=== PATIENT | female | born 1990 | race Two or more races ===

== ENCOUNTER → 2017-11-08 | Outpatient (CLI) | payer BC | LOC: LAB 13:07 | PROVIDERS: Registered Nurse Community Health | DX: Z01.419 Encounter for gynecological examination (general) (routine) without abnormal findings (principal) | CPT/HCPCS: G0123 ==

== ENCOUNTER → 2021-04-23 | Outpatient (CLI) | payer BC ==
[~2021-04-23] MED LIST: IBUP800 PO; PRENATAL TABLE1 EAC2 PO
== END ==
LOC: LAB 16:53 → LAB SHORT 16:53
DX: O09.93 Supervision of high risk pregnancy, unspecified, third trimester (principal); Z3A.00 Weeks of gestation of pregnancy not specified
CPT/HCPCS: 87081; 87150

== ENCOUNTER 2021-05-08 05:06 | Inpatient (IN) | payer BC ==
[~2021-05-08] VITALS: Ht 154.9 cm; Wt 97.7 kg
[2021-05-08] MEDS ORDERED: PRENATAL TABLE1 EAC2 PO (05:45)
[2021-05-08 06:11] LABS: BASOPHILS ABSOLUTE AUTO 0.02 K/mm3 (0.00-0.23); BASOPHILS PERCENT AUTO 0 % (0-2); EOSINOPHILS PERCENT AUTO 1 % (0-6); Hematocrit 34.7 % (33.0-51.0); Hemoglobin 11.1 g/dL (11.5-16.0); IMMATURE GRAN ABSOLUTE AUTO 0.07 K/mm3 (0.00-0.10); IMMATURE GRAN PERCENT AUTO 1 % (0-1); LYMPHOCYTES ABSOLUTE AUTO 2.48 K/mm3 (0.84-5.20); LYMPHOCYTES PERCENT AUTO 28 % (21-46); MONOCYTES ABSOLUTE AUTO 0.55 K/mm3 (0.16-1.47); MONOCYTES PERCENT AUTO 6 % (4-13); Mean Corpuscular HGB 25.1 pg (26.0-34.0); Mean Corpuscular Volume 78 fL (80-100); Mean Platelet Volume 11.7 fL (9.1-12.4); NEUTROPHILS ABSOLUTE AUTO 5.72 K/mm3 (1.96-9.15); NEUTROPHILS PERCENT AUTO 64 % (41-73); Platelet Count 234 K/mm3 (150-400); RDW Standard Deviation 39.7 fL (35.1-46.3); Red Blood Cell Count 4.43 M/mm3 (3.80-5.20); White Blood Cell Count 8.94 K/mm3 (4.00-11.30)
[2021-05-08 07:00] LABS: SARS-Cov-2 (COVID-19) PCR, MMC NEGATIVE (NEGATIVE)
--- NOTE | 2021-05-08 08:03 | NUR ---
1 GOLF BALL SIZED CLOT PASSED, FIRM AT THE UBILICUS, PIT CONTINUES TO RUN. NO TRICKLING.
[2021-05-09] MEDS ORDERED: IBUP800 PO (07:51)
--- NOTE | 2021-05-09 20:35 | NUR ---
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 speaks very good occitan. pt speaks some, understands more than she speaks, encoruaged to call with questions
== END 2021-05-09 20:30 | disposition home or self-care (01) | DRG 807 ==
LOC: BC 05:06 → OBS 05:06 → BC 05:08 → OBS 05:36 → BC 05:38
PROVIDERS: Obstetrics & Gynecology; ADMIT Obstetrics & Gynecology
PROC: 10E0XZZ Delivery of Products of Conception, External Approach (ICD-10-PCS; principal; 2021-05-08)
PROC: 0HQ9XZZ Repair Perineum Skin, External Approach (ICD-10-PCS; 2021-05-08)
DX: O99.214 Obesity complicating childbirth (principal); Z37.0 Single live birth; O34.211 Maternal care for low transverse scar from previous cesarean delivery; Z67.40 Type O blood, Rh positive; O99.824 Streptococcus B carrier state complicating childbirth; Z20.822 Contact with and (suspected) exposure to COVID-19; O70.0 First degree perineal laceration during delivery; Z3A.39 39 weeks gestation of pregnancy; O69.81X0 Labor and delivery complicated by cord around neck, without compression, not applicable or unspecified
CPT/HCPCS: 36415; 85025; 86850; 86900; 86901; A9270; J0290; J2590; J7120; U0004